=== PATIENT | female | born 1955 | race Caucasian/White ===

== ENCOUNTER 2017-09-28 19:56 | Emergency (ER) | payer OTHER ==
[~2017-09-28] VITALS: Ht 165.1 cm; Wt 90.7 kg
[2017-09-28] MEDS ORDERED: NORCO 5-325 TA1 EACH ORAL (21:05)
[2017-09-28] MEDS ORDERED: IBUPROFEN400 MG ORAL (21:05)
[2017-09-28 21:50] VITALS: BP 0/0
--- NOTE | 2017-09-28 21:59 | Emergency Room Report ---
History of Present Illness General Chief Complaint: Lower Extremity Injury Source: Patient Present Illness HPI Patient is a 62-year-old female who presented after increased right ankle pain. Patient poorly had inverted her ankle proximal for 3 days prior to arrival. Patient states that she had been ambulatory after the fall. She reported having some pain to the toes of her right foot. The patient denies any severe pain. She reports having taken ibuprofen with some improvement.She had increased swelling to the area. Allergies: Coded Allergies: No Known Allergies (Unverified , 09/28/17) Patient History Past Medical History: see triage record Last Menstrual Period: n/a Reviewed Nursing Documentation: PMH: Agreed; PSxH: Agreed Nursing Documentation-PMH Past Medical History: No Stated History Review of Systems All Other Systems: negative except mentioned in HPI Physical Exam Vital Signs Date Time Temp Pulse Resp B/P (MAP) Pulse Ox O2 Delivery O2 Flow Rate FiO2 09/28/17 19:59 98.2 81 16 125/79 95 Room Air 98.2 General Appearance: well appearing, no apparent distress, alert, GCS 15 Head: normocephalic, atraumatic ENT: hearing grossly normal, normal voice Neck: full range of motion, supple Respiratory: no respiratory distress, speaking full sentences Musculoskeletal: no calf tenderness, swelling - right ankle fibular tenderness Neurologic: normal inspection, alert, oriented x3, responsive, certified retinal angiographer III-XII nml as tested, normal gait Psychiatric: mood/affect normal Skin: no rash, other - bruising to right lateral foot and ankle Medical Decision Making Diagnostic Impression: Primary Impression: Fracture of distal fibula ER Course Patient presented for ankle pain. Differential diagnosis included was not limited to sprain, fracture, dislocation, cellulitis, vascular insufficiency. X -ray imaging of the ankle was ordered. Other X-Ray Diagnostic Results Other X-Ray Diagnostic Results : # of Views/Limited Vs Complete: 3 View Indication: Pain EP Interpretation: Yes Impression: Other - distal fibula fracture Electronically Signed by: Electronically signed by Dr. oBn López M.D. Last Vital Signs Date Time Temp Pulse Resp B/P (MAP) Pulse Ox O2 Delivery O2 Flow Rate FiO2 09/28/17 19:59 98.2 81 16 125/79 95 Room Air 98.2 Status: improved Disposition: HOME, SELF-CARE Condition: Stable Scripts Ibuprofen* (MOTRIN*) 400 Mg Tablet 400 MG ORAL Q8H, #30 TAB 0 Refills Prov: Bon López MD 09/28/17 Hydrocodone Bit/Acetaminophen 5-325* (NORCO 5-325*) 1 Each Tablet 1 TAB ORAL Q6H PRN for For Pain, #20 TAB 0 Refills Prov: Bon López MD 09/28/17 Patient Instructions: Ankle Fracture Bon López MD Sep 28, 2017 21:59
--- NOTE | 2017-09-29 11:55 | Diagnostic Imaging Report ---
Indication: Pain Comparison: None Findings: 3 views of the right foot were obtained. No acute fractures, malalignment, erosions or periostitis are identified. Soft tissues are unremarkable. Plantar calcaneal spur noted. Impression: No acute findings.
--- NOTE | 2017-09-29 11:56 | Diagnostic Imaging Report ---
Indication: Pain right ankle ankle pain/trauma Comparison: None Findings: 3 views of the right ankle obtained. There is an acute fracture at the inferior margin of the lateral malleolus nondisplaced. Soft tissue swelling noted. No malalignment seen. Plantar calcaneal spur noted. IMPRESSION: Acute lateral malleolus fracture
== END 2017-09-28 21:50 | disposition home or self-care (01) ==
LOC: EMR 20:33
DX: S82.491A Other fracture of shaft of right fibula, initial encounter for closed fracture (principal); S82.61XA Displaced fracture of lateral malleolus of right fibula, initial encounter for closed fracture; W19.XXXA Unspecified fall, initial encounter; Y92.9 Unspecified place or not applicable
CPT/HCPCS: 99284